=== PATIENT | female | born 1945 | race Caucasian/White ===

== ENCOUNTER → 2019-06-16 | Outpatient (CLI) | payer MEDICARE ==
[~2019-06-16] MED LIST: FENTANYL PF 100 MCG/2ML ONE; MIDAZOLAM 1 MG/ML, 5ML ONE
== END | disposition home or self-care (01) ==
LOC: EDSTATUS 05-19 09:00 → RAD 09:09
PROVIDERS: ATTEND Radiology Radiation Oncology
DX: E23.6 Other disorders of pituitary gland (principal)
CPT/HCPCS: 70553; 99156; 99157; J2250; J3010

== ENCOUNTER 2020-02-06 13:06 | Emergency (ER) | payer MEDICARE ==
[~2020-02-06] VITALS: Ht 160 cm; Wt 55.3 kg
[2020-02-06 14:37] LABS: BASOPHILS % (AUTO) 1 % (0-1); EOSINOPHILS % (AUTO) 8 % (1-7); LYMPHOCYTES % (AUTO) 21 % (22-44); MEAN CORPUSCULAR HEMOGLOBIN 29.4 pg (27.0-34.8); MEAN CORPUSCULAR HGB CONC 33.7 g/dL (32.4-35.8); MEAN PLATELET VOLUME 6.7 fL (7.4-10.4); MONOCYTES % (AUTO) 5 % (2-9); NEUTROPHILS % (AUTO) 66 % (42-75); PLATELET COUNT 148 x10^3/uL (130-400); RED CELL DISTRIBUTION WIDTH 14.2 % (9.6-15.2)
[2020-02-06 14:46] LABS: ALBUMIN 3.8 g/dL (3.4-5.0); ANION GAP 9 mmol/L (5-15); CALCIUM 8.9 mg/dL (8.5-10.1); CHLORIDE 99 mmol/L (98-107)
[2020-02-06 14:47] LABS: CREATININE 0.93 mg/dL (0.55-1.02)
[2020-02-06 14:48] LABS: MD NO
--- NOTE | 2020-02-06 15:06 | NUR ---
pt wheeled from lobby to room with spouse at side. pt changed into gown and in gurney at this time; awaiting erp. warm blanket provided.
--- NOTE | 2020-02-06 15:23 | NUR ---
PT TO RESTROOM AT THIS TIME WITH . UA CUP PROVIDED.
--- NOTE | 2020-02-06 16:23 | NUR ---
PT D/C WITH D/C SUMMARY. PT AND SPOUSE VERBALIZE UNDERSTANDING OF NEED TO F/U WITH PCP OUTPATIENT. PT WHEELED TO LOBBY WITH SPOUSE FOR D/C HOME IN PERSONAL VEHICLE. PT DENIES ANY OTHER NEEDS PERTAINING TO THIS VISIT.
[2020-02-06 16:26] VITALS: BP 139/88
== END 2020-02-06 16:28 | disposition home or self-care (01) ==
LOC: ED 15:57
DX: E87.1 Hypo-osmolality and hyponatremia (principal); I10 Essential (primary) hypertension
CPT/HCPCS: 36415; 71045; 80048; 82040; 85025; 93005; 99285